=== PATIENT | female | born 1950 | race Asian ===

== ENCOUNTER 2021-06-29 08:32 | Day surgery (SDC) | payer MEDICARE, MEDICAID ==
[~2021-06-29] VITALS: Ht 157.5 cm; Wt 65.5 kg
[2021-06-29 08:49] VITALS: BP 121/67
[2021-06-29] MEDS ORDERED: CHOL200059 PO (09:04)
[2021-06-29] MEDS ORDERED: ATOR20TA66 PO (09:04)
[2021-06-29] MEDS ORDERED: IBUP-1985 PO (09:04)
[2021-06-29] MEDS ORDERED: DICL50TA8 PO (09:04)
[2021-06-29] MEDS ORDERED: OMEP-50 PO (09:04)
[2021-06-29] MEDS ORDERED: LISI40TA13 PO (09:04)
[2021-06-29] MEDS ORDERED: MYC15CR TOP (09:04)
[2021-06-29] MEDS ORDERED: ACET-3414 PO (09:04)
[2021-06-29] MEDS ORDERED: AMOX500C4 PO (09:04)
[2021-06-29] MEDS ORDERED: fentaNYL/PF 50MCG/1 ML 2ML syringe ONE (09:07)
[2021-06-29] MEDS ORDERED: MIDAZolam 1 MG/ML 5ML VIAL ONE (09:07)
[2021-06-29 11:05] VITALS: BP 134/80
[2021-06-29 11:15] VITALS: BP 100/47
[2021-06-29 11:25] VITALS: BP 95/52
[2021-06-29 11:35] VITALS: BP 101/58
== END 2021-06-29 11:37 | disposition home or self-care (01) ==
LOC: GI LAB 08:32
PROVIDERS: ATTEND Internal Medicine Gastroenterology
DX: Z12.11 Encounter for screening for malignant neoplasm of colon (principal); K64.8 Other hemorrhoids; I10 Essential (primary) hypertension; Z79.899 Other long term (current) drug therapy
CPT/HCPCS: G0121; G0500; J2250; J3010; J7040; Z7512; 45378; 99152; 99153; A4620